=== PATIENT | female | born 1995 | race Caucasian/White ===

== ENCOUNTER 2018-01-25 00:43 | Emergency (ER) | payer SELFPAY ==
[~2018-01-25] VITALS: Ht 160 cm; Wt 95.3 kg
[2018-01-25 00:47] VITALS: BP 129/86
--- NOTE | 2018-01-25 00:51 | NUR ---
PT TAKEN TO BED 8
--- NOTE | 2018-01-25 00:52 | NUR ---
PT PRESENTED ER WITH C/O CHEST PAIN. PT STATED SHE HAS BEEN HAVING INTERMITTENT/PRESSURE CHEST PAIN X 3 WEEKS. PAIN RADIATES TO THE LEFT ARM AND SHOULDER. PAIN IS 8/10. PT HAS KNA AND NO PRIOR MEDICAL HX. PT DENIES N/V/D AND NO ABDOMINAL PAIN. SKIN IS PINK/WARM/DRY; AAOX4 WITH EVEN AND STEADY GAIT; HR EVEN AND REGULAR; PT DENIES ANY FEVER, SOB, OR COUGH AT THIS TIME; VSS; PATIENT POSITIONED FOR COMFORT; HOB ELEVATED; BEDRAILS UP X2; BED DOWN. ER MD MADE AWARE OF PT STATUS.
--- NOTE | 2018-01-25 01:43 | NUR ---
Dr. Melissa evaluating patient at bedside.
[2018-01-25 01:46] VITALS: BP 112/74
--- NOTE | 2018-01-25 01:46 | NUR ---
Patient discharged with v/s stable. Written and verbal after care instructions given and explained. Patient alert, oriented and verbalized understanding of instructions. Ambulatory with steady gait. All questions addressed prior to discharge. ID band removed. Patient advised to follow up with PMD. Rx of naprosyn was given. Patient educated on indication of medication including possible reaction and side effects. Opportunity to ask questions provided and answered.
== END 2018-01-25 01:46 | disposition home or self-care (01) ==
LOC: MED 00:43
DX: M94.0 Chondrocostal junction syndrome [Tietze] (principal); M79.602 Pain in left arm
CPT/HCPCS: 81002; 81025; 99283

== ENCOUNTER 2018-02-19 12:56 | Emergency (ER) | payer MEDICAID ==
[~2018-02-19] VITALS: Ht 160 cm; Wt 102.3 kg
[2018-02-19 13:20] VITALS: BP 134/84
[2018-02-19 16:00] VITALS: BP 134/84
== END 2018-02-19 15:54 | disposition left against medical advice (07) ==
LOC: MED 12:56
DX: M54.9 Dorsalgia, unspecified (principal); R51 Headache; Z53.21 Procedure and treatment not carried out due to patient leaving prior to being seen by health care provider; V89.2XXA Person injured in unspecified motor-vehicle accident, traffic, initial encounter; Y93.89 Activity, other specified; Y92.89 Other specified places as the place of occurrence of the external cause; Y99.8 Other external cause status